=== PATIENT | female | born 1970 | race Caucasian/White ===

== ENCOUNTER 2018-04-05 11:00 | Emergency (ER) | payer SELFPAY ==
[~2018-04-05] VITALS: Ht 152.4 cm; Wt 6.0 kg
[2018-04-05 11:35] LABS: URINE BILIRUBIN - DIPSTICK NEGATIVE (NEGATIVE); URINE BLOOD DIPSTICK TRACE-LYSED (NEGATIVE); URINE COLOR YELLOW; URINE GLUCOSE - DIPSTICK NEGATIVE (NEGATIVE); URINE KETONE NEGATIVE (NEGATIVE); URINE LEUK ESTERASE NEGATIVE (NEGATIVE); URINE NITRITE - DIPSTICK NEGATIVE (Negative); URINE PH 5.5 (4.5-8.0); URINE PROTEIN - DIPSTICK NEGATIVE (NEG-TRACE); URINE SPECIFIC GRAVITY 1.025; URINE UROBILINOGEN - DIPSTICK 0.2 E.U./dL (0.2)
[2018-04-05 11:37] LABS: URINE CLARITY CLEAR
[2018-04-05 12:35] LABS: HEMATOCRIT 34.4 % (37.0-47.0); HEMOGLOBIN 10.7 g/dl (12.0-16.0); IMMATURE GRANULOCYTES 0.4 % (0.0-5.0); MEAN CELL VOLUME 92.5 fL CALC (80.0-100.0); MEAN CORPUSCULAR HGB 28.8 pG CALC (26.0-32.0); MEAN CORPUSCULAR HGB CONC 31.1 g/L CALC (32.0-36.0); NEUT# 7.31 thou/uL (2.00-7.15); RED BLOOD COUNT 3.72 mill/uL (4.20-5.60); RED CELL DISTRI WIDTH 15.7 % (11.5-15.5)
[2018-04-05] MEDS ORDERED: TORADOL PO (13:08)
[2018-04-05] MEDS ORDERED: ONDANSETRON4 MG PO (13:08)
[2018-04-05 13:16] VITALS: BP 163/91
== END 2018-04-05 13:23 | disposition home or self-care (01) | DRG 392 ==
LOC: ED 11:00
PROVIDERS: Emergency Medicine
DX: R10.30 Lower abdominal pain, unspecified (principal); R11.0 Nausea

== ENCOUNTER 2019-06-21 | Emergency (ER) | payer SELFPAY ==
[~2019-06-21] MED LIST: ONDANSETRON4 MG PO; TORADOL PO
[2019-06-21 16:44] LABS: IMMATURE GRANULOCYTES 0.1 % (0.0-5.0); MEAN CELL VOLUME 94.3 fL CALC (80.0-100.0); MEAN CORPUSCULAR HGB 30.2 pG CALC (26.0-32.0); NEUT# 3.13 thou/uL (2.00-7.15); RED BLOOD COUNT 4.37 mill/uL (4.20-5.60); RED CELL DISTRI WIDTH 15.7 % (11.5-15.5)
[2019-06-21 16:45] LABS: URINE BILIRUBIN - DIPSTICK NEGATIVE (NEGATIVE); URINE BLOOD DIPSTICK NEGATIVE (NEGATIVE); URINE COLOR YELLOW; URINE GLUCOSE - DIPSTICK NEGATIVE (NEGATIVE); URINE KETONE NEGATIVE (NEGATIVE); URINE LEUK ESTERASE NEGATIVE (NEGATIVE); URINE NITRITE - DIPSTICK NEGATIVE (Negative); URINE PROTEIN - DIPSTICK NEGATIVE (NEG-TRACE); URINE SPECIFIC GRAVITY <=1.005; URINE UROBILINOGEN - DIPSTICK 0.2 E.U./dL (0.2)
[2019-06-21 17:00] LABS: HEMATOCRIT 41.2 % (37.0-47.0); HEMOGLOBIN 13.2 g/dl (12.0-16.0)
[2019-06-21 17:10] LABS: ALBUMIN 5.1 g/dL (3.2-5.0); ALKALINE PHOSPHATASE 95 u/l (38-126); AMYLASE 82 u/l (30-110); BILIRUBIN, TOTAL 0.9 mg/dL (0.0-1.4); BUN 9 mg/dL (7-17); BUN/CREATININE RATIO 24 (12-20 (CALC)); CARBON DIOXIDE 21 mmol/l (22-30); CHLORIDE 106 mmol/l (95-108); CREATININE 0.4 mg/dL (0.5-1.0); GFR > 60 ML/MIN (>=60 (CALC)); GFR FOR AFR.AMER. > 60 ML/MIN (>=60 (CALC)); LIPASE 60 u/l (23-300); SGOT/AST 36 u/l (14-36); SODIUM 138 mmol/l (137-146); TOTAL PROTEIN 9.2 g/dL (6.3-8.2)
[2019-06-21 17:13] LABS: ANION GAP 17 (6-22 (CALC)); POTASSIUM 5.5 mmol/l (3.5-5.1)
== END 2019-06-21 19:09 | disposition home or self-care (01) | DRG 195 ==
DX: R09.1 Pleurisy (principal); B34.9 Viral infection, unspecified

== ENCOUNTER 2020-03-07 13:50 | Emergency (ER) | payer SELFPAY ==
[~2020-03-07] VITALS: Ht 152.4 cm; Wt 63.0 kg
[2020-03-07 14:38] LABS: GFR > 60 ML/MIN (>=60 (CALC)); GFR FOR AFR.AMER. > 60 ML/MIN (>=60 (CALC))
[2020-03-07 14:41] LABS: HEMATOCRIT 38.6 % (37.0-47.0); HEMOGLOBIN 12.4 g/dl (12.0-16.0); IMMATURE GRANULOCYTES 0.3 % (0.0-5.0); MEAN CELL VOLUME 95.1 fL CALC (80.0-100.0); MEAN CORPUSCULAR HGB 30.5 pG CALC (26.0-32.0); MEAN CORPUSCULAR HGB CONC 32.1 g/dL CAL (32.0-36.0); NEUT# 9.48 thou/uL (2.00-7.15); RED BLOOD COUNT 4.06 mill/uL (4.20-5.60); RED CELL DISTRI WIDTH 14.1 % (11.5-15.5)
[2020-03-07 14:48] LABS: ALBUMIN 4.7 g/dL (3.2-5.0); ALKALINE PHOSPHATASE 91 u/l (38-126); BUN 11 mg/dL (7-17); BUN/CREATININE RATIO 25 (12-20 (CALC)); CHLORIDE 105 mmol/l (95-108); CREATININE 0.5 mg/dL (0.5-1.0); GFR > 60 ML/MIN (>=60 (CALC)); GFR FOR AFR.AMER. > 60 ML/MIN (>=60 (CALC)); SGOT/AST 25 u/l (14-36); SODIUM 138 mmol/l (137-146)
[2020-03-07 15:15] VITALS: BP 153/82
[2020-03-07 15:17] LABS: ANION GAP 11 (6-22 (CALC)); BILIRUBIN, TOTAL 0.5 mg/dL (0.0-1.4); CARBON DIOXIDE 26 mmol/l (22-30); POTASSIUM 4.2 mmol/l (3.5-5.1)
[2020-03-07 15:22] LABS: INTERNATIONAL NORMALIZED RATIO 0.9 RATIO (0.7-1.3); PROTHROMBIN TIME 9.4 SECONDS (9.0-12.5)
== END 2020-03-07 15:37 | disposition short-term general hospital (02) | DRG 62 ==
LOC: ED 13:50
PROVIDERS: Family Medicine
DX: I63.9 Cerebral infarction, unspecified (principal); G81.94 Hemiplegia, unspecified affecting left nondominant side; H53.8 Other visual disturbances; R29.702 NIHSS score 2; I10 Essential (primary) hypertension; F17.210 Nicotine dependence, cigarettes, uncomplicated
CPT/HCPCS: J2997; Q9967

== ENCOUNTER 2020-03-19 13:28 | Observation (INO) | payer SELFPAY ==
[~2020-03-19] VITALS: Ht 152.4 cm; Wt 64.0 kg
--- NOTE | 2020-03-19 13:49 | NUR ---
PT AMBLATORY TO ROOM FOR EXAM
--- NOTE | 2020-03-19 14:15 | NUR ---
PT CONCERNED SHE STILL HAS RESIDUAL DEFICITS FROM [facility] 03/07/20. WOULD LIKE F/U. CONTINUES WITH INTERMITTENT NUMBNESS TO LUE X 3DAYS. DENIES HEADACHE OR BLURRY VISION.
[2020-03-19 14:49] LABS: HEMATOCRIT 36.5 % (37.0-47.0); HEMOGLOBIN 11.6 g/dl (12.0-16.0); IMMATURE GRANULOCYTES 0.3 % (0.0-5.0); MEAN CELL VOLUME 97.9 fL CALC (80.0-100.0); MEAN CORPUSCULAR HGB 31.1 pG CALC (26.0-32.0); MEAN CORPUSCULAR HGB CONC 31.8 g/dL CAL (32.0-36.0); NEUT# 3.88 thou/uL (2.00-7.15); RED BLOOD COUNT 3.73 mill/uL (4.20-5.60); RED CELL DISTRI WIDTH 13.7 % (11.5-15.5)
[2020-03-19] MEDS ORDERED: ASPIRIN81 MG PO (14:57)
[2020-03-19] MEDS ORDERED: ATORVASTATIN CA40 MG PO (14:57)
[2020-03-19 15:18] LABS: ALBUMIN 4.4 g/dL (3.2-5.0); ALKALINE PHOSPHATASE 60 u/l (38-126); ANION GAP 8 (6-22 (CALC)); BILIRUBIN, TOTAL 0.6 mg/dL (0.0-1.4); BUN 11 mg/dL (7-17); BUN/CREATININE RATIO 20 (12-20 (CALC)); CARBON DIOXIDE 27 mmol/l (22-30); CHLORIDE 108 mmol/l (95-108); CREATININE 0.5 mg/dL (0.5-1.0); GFR > 60 ML/MIN (>=60 (CALC)); GFR FOR AFR.AMER. > 60 ML/MIN (>=60 (CALC)); POTASSIUM 4.2 mmol/l (3.5-5.1); SGOT/AST 26 u/l (14-36); SODIUM 139 mmol/l (137-146); TOTAL PROTEIN 7.5 g/dL (6.3-8.2)
--- NOTE | 2020-03-19 15:48 | NUR ---
ATIVAN 1MG IVP FOR C/O ANXIETY WHILE ATTEMPTING MRI BRAIN.
--- NOTE | 2020-03-19 17:00 | NUR ---
RETURNED FROM RADIOLOGY VIA WHEELCHAIR. AMBULATED TO BATHROOM WITH STEADY GAIT.
--- NOTE | 2020-03-19 18:08 | NUR ---
MD AT BEDSIDE TO DISCUSS RESULTS AND POC.
--- NOTE | 2020-03-19 18:58 | NUR ---
REPORT GIVEN TO NEL PHILLIPS.
--- NOTE | 2020-03-19 20:00 | NUR ---
AWAITING TRAPORT TO FLOOR. VSS.
--- NOTE | 2020-03-19 21:00 | NUR ---
RESTING QUIETLY. NO CHANGE NOTED.
--- NOTE | 2020-03-19 21:25 | NUR ---
Admission Note Report Given to: VANDA Transported by: X Wheelchair Stretcher Transported with: X Nurse Transporter X Patent IV O2 X Diesel Instructor Location: ICU X [facility]
--- NOTE | 2020-03-19 21:25 | NUR ---
PT RECEIVED FROM ED TO ROOM 261. ARRIVES VIA STRETCHER ACCOMPANIED BY ... RN. PT AMBULATORY TO BED. GAIT STEADY AND BALANCED. PT DENIES PAIN AT THIS TIME. ORIENTED TO UNIT, ROOM, CALL GOLD, LIGHTS, TV. ICE CHIPS PROVIDED. PT TO BE NPO AT MIDNIGHT, PT VERBALIZES UNDERSTANDING AND AGREEMENT. CALL GOLD WITHIN REACH. AGREES TO CALL PRN.
[2020-03-19 21:40] VITALS: BP 137/71
--- NOTE | 2020-03-19 21:45 | NUR ---
ASSESSMENT AND VITALS COMPLETED AT THIS TIME. RESPIRATIONS ARE EVEN AND UNLABORED PRESENTLY ON ROOM AIR. HEART RHYTHM IS NORMAL WITH TELE IN PLACE. BOWEL SOUNDS ARE ACTIVE IN ALL QUADRANTS, LAST REPORTED BM 03/19/2020. RADIAL AND PEDAL PULSES ARE STRONG WITH NORMAL CAPILLARY REFILL. #20G IN RAC SLAINE LOCKED; SITE APPEARS HEALTHY AND PATENT. Q4 NEURO CHECKS ASSESSED. PT DENIES OF ANY PAIN OR DISCOMFORTS AT THIS TIME. ALL SAFETY PRECAUTIONS ARE IN PLACE WITH CALL LIGHT IN REACH. WILL CONTINUE TO MONITOR.
--- NOTE | 2020-03-20 00:04 | NUR ---
PT LAYING IN BED WITH EYES CLOSED, APPEARS TO BE SLEEPING, APPEARS COMFORTABLE AND IN NO DISTRESS. RESPIRATIONS REGULAR AND UNLABORED. ITEMS REMAIN WITHIN REACH, CALL GOLD REMAINS WITHIN REACH. BED REMAINS LOCKED AND IN LOW POSITION WITH BEDRAILS UP X2. WILL CONTINUE TO MONITOR.
[2020-03-20 04:06] VITALS: BP 97/56
[2020-03-20 04:33] LABS: HEMATOCRIT 36.1 % (37.0-47.0); HEMOGLOBIN 11.3 g/dl (12.0-16.0); MEAN CELL VOLUME 98.4 fL CALC (80.0-100.0); MEAN CORPUSCULAR HGB 30.8 pG CALC (26.0-32.0); MEAN CORPUSCULAR HGB CONC 31.3 g/dL CAL (32.0-36.0); RED BLOOD COUNT 3.67 mill/uL (4.20-5.60); RED CELL DISTRI WIDTH 13.7 % (11.5-15.5)
[2020-03-20 04:56] LABS: ANION GAP 10 (6-22 (CALC)); BUN 14 mg/dL (7-17); BUN/CREATININE RATIO 26 (12-20 (CALC)); CALCULATED LDLCHOLESTEROL 82 mg/dL (62-129 (CALC)); CARBON DIOXIDE 25 mmol/l (22-30); CHLORIDE 109 mmol/l (95-108); CHOLESTEROL HDL RATIO 4.1 (<4.4 (CALC)); CREATININE 0.5 mg/dL (0.5-1.0); GFR > 60 ML/MIN (>=60 (CALC)); GFR FOR AFR.AMER. > 60 ML/MIN (>=60 (CALC)); HDL CHOLESTEROL 39 mg/dL (>=40); MAGNESIUM 2.5 mg/dL (1.6-2.3); POTASSIUM 4.5 mmol/l (3.5-5.1); SODIUM 139 mmol/l (137-146); TOTAL CHOLESTEROL 160 mg/dl (0-199); TOTAL TRIGLYCERIDES 192 mg/dl (30-149); VLDL CHOLESTROL 38 mg/dl (1-41 (CALC))
--- NOTE | 2020-03-20 07:03 | NUR ---
REPORT RECEIVED FROM ALAN DC. PT RESTING IN BED, NO S/S OF DISTRESS AT THIS TIME. SAFETY PRECAUTIONS IN PLACE. WILL CONTINUE TO MONITOR.
[2020-03-20 07:24] VITALS: BP 114/51
--- NOTE | 2020-03-20 07:24 | NUR ---
PT RESTING IN BED, ALERT AND ORIENTED. RESPIRATIONS ARE EVEN AND UNLABORED ON RA, LUNGS SOUND CLEAR. PEDAL PULSES ARE WEAK. PT DENIES ANY PAIN OR DISCOMFORT AT THIS TIME. SAFETY PRECAUTIONS IN PLACE. WILL CONTINUE TO MONITOR.
--- NOTE | 2020-03-20 07:44 | NUR ---
PT note Patient is screened for rehab intervention. No speech needs are identfied but the patient would benefit from PT and OT referrals if medical agrees
[2020-03-20] MEDS ORDERED: PLAVIX75 MG PO (10:46)
--- NOTE | 2020-03-20 12:49 | NUR ---
PT RESTING IN BED, NO S/S OF DISTRESS AT THIS TIME. SAFETY PRECAUTIONS IN PLACE. WILL CONTINUE TO MONITOR.
--- NOTE | 2020-03-20 14:38 | NUR ---
pt provided with discharge packet, iv removed catheter intact.
--- NOTE | 2020-03-20 14:42 | NUR ---
Discharge instructions given. Patient verbalizes understanding of same. Discharged in stable condition via Ambulatory to Home with staff. All belongings sent with pt.
== END 2020-03-20 14:41 | disposition home or self-care (01) | DRG 81 ==
LOC: ED 13:28 → ED-I 14:33 → ED 14:33 → ED-I 18:05 → ED 18:19 → MS2 18:20
PROVIDERS: Family Medicine; Nurse Practitioner; ADMIT Internal Medicine; ATTEND Internal Medicine
DX: G93.5 Compression of brain (principal); I10 Essential (primary) hypertension; E78.5 Hyperlipidemia, unspecified; F17.200 Nicotine dependence, unspecified, uncomplicated; Z86.73 Personal history of transient ischemic attack (TIA), and cerebral infarction without residual deficits; Z20.828 Contact with and (suspected) exposure to other viral communicable diseases
CPT/HCPCS: G0378; J2060

== ENCOUNTER 2020-03-26 20:58 | Emergency (ER) | payer SELFPAY ==
[~2020-03-26] VITALS: Ht 152.4 cm; Wt 62.2 kg
[~2020-03-26 20:58] MED LIST changes: +ASPIRIN81 MG PO; +ATORVASTATIN CA40 MG PO; +PLAVIX75 MG PO
[2020-03-26 22:08] LABS: HEMATOCRIT 36.9 % (37.0-47.0); HEMOGLOBIN 11.9 g/dl (12.0-16.0); IMMATURE GRANULOCYTES 0.1 % (0.0-5.0); MEAN CELL VOLUME 96.3 fL CALC (80.0-100.0); MEAN CORPUSCULAR HGB 31.1 pG CALC (26.0-32.0); MEAN CORPUSCULAR HGB CONC 32.2 g/dL CAL (32.0-36.0); NEUT# 3.09 thou/uL (2.00-7.15); RED BLOOD COUNT 3.83 mill/uL (4.20-5.60); RED CELL DISTRI WIDTH 13.8 % (11.5-15.5)
[2020-03-26 22:35] LABS: ALBUMIN 4.9 g/dL (3.2-5.0); ALKALINE PHOSPHATASE 86 u/l (38-126); ANION GAP 15 (6-22 (CALC)); BILIRUBIN, TOTAL 0.5 mg/dL (0.0-1.4); BUN 13 mg/dL (7-17); BUN/CREATININE RATIO 29 (12-20 (CALC)); CARBON DIOXIDE 25 mmol/l (22-30); CHLORIDE 104 mmol/l (95-108); CREATININE 0.5 mg/dL (0.5-1.0); GFR > 60 ML/MIN (>=60 (CALC)); GFR FOR AFR.AMER. > 60 ML/MIN (>=60 (CALC)); POTASSIUM 4.6 mmol/l (3.5-5.1); SGOT/AST 35 u/l (14-36); SODIUM 140 mmol/l (137-146)
[2020-03-26 22:47] LABS: MYOGLOBIN 17 ng/mL (0 - 62)
[2020-03-27 00:24] VITALS: BP 127/62
== END 2020-03-27 00:54 | disposition home or self-care (01) | DRG 313 ==
LOC: ED 20:58
PROVIDERS: Emergency Medicine
DX: R07.89 Other chest pain (principal); G93.5 Compression of brain; I69.998 Other sequelae following unspecified cerebrovascular disease; R20.0 Anesthesia of skin

== ENCOUNTER 2020-05-26 16:12 | Emergency (ER) | payer SELFPAY ==
[~2020-05-26] VITALS: Ht 152.4 cm; Wt 70.0 kg
[2020-05-26 17:48] LABS: URINE BILIRUBIN - DIPSTICK NEGATIVE (NEGATIVE); URINE BLOOD DIPSTICK NEGATIVE (NEGATIVE); URINE COLOR YELLOW; URINE GLUCOSE - DIPSTICK NEGATIVE (NEGATIVE); URINE KETONE NEGATIVE (NEGATIVE); URINE LEUK ESTERASE NEGATIVE (NEGATIVE); URINE NITRITE - DIPSTICK NEGATIVE (Negative); URINE PROTEIN - DIPSTICK NEGATIVE (NEG-TRACE); URINE UROBILINOGEN - DIPSTICK 0.2 E.U./dL (0.2)
[2020-05-26 17:48] LABS: HEMATOCRIT 35.8 % (37.0-47.0); HEMOGLOBIN 11.5 g/dl (12.0-16.0); IMMATURE GRANULOCYTES 0.3 % (0.0-5.0); MEAN CELL VOLUME 97.5 fL CALC (80.0-100.0); MEAN CORPUSCULAR HGB 31.3 pG CALC (26.0-32.0); MEAN CORPUSCULAR HGB CONC 32.1 g/dL CAL (32.0-36.0); RED BLOOD COUNT 3.67 mill/uL (4.20-5.60); RED CELL DISTRI WIDTH 13.3 % (11.5-15.5)
[2020-05-26 18:09] LABS: ALBUMIN 4.7 g/dL (3.2-5.0); ALKALINE PHOSPHATASE 80 u/l (38-126); ANION GAP 13 (6-22 (CALC)); BILIRUBIN, TOTAL 0.4 mg/dL (0.0-1.4); BUN 11 mg/dL (7-17); BUN/CREATININE RATIO 23 (12-20 (CALC)); CARBON DIOXIDE 27 mmol/l (22-30); CHLORIDE 105 mmol/l (95-108); CREATININE 0.5 mg/dL (0.5-1.0); GFR > 60 ML/MIN (>=60 (CALC)); GFR FOR AFR.AMER. > 60 ML/MIN (>=60 (CALC)); POTASSIUM 4.2 mmol/l (3.5-5.1); SGOT/AST 30 u/l (14-36); SODIUM 140 mmol/l (137-146); TOTAL PROTEIN 8.2 g/dL (6.3-8.2)
[2020-05-26 18:21] LABS: MYOGLOBIN 19 ng/mL (0 - 62)
[2020-05-26 19:14] VITALS: BP 136/82
== END 2020-05-26 20:18 | disposition left against medical advice (07) | DRG 313 ==
LOC: ED 16:12
PROVIDERS: Emergency Medicine
DX: R07.9 Chest pain, unspecified (principal); M79.602 Pain in left arm; Z91.19 Patient's noncompliance with other medical treatment and regimen; Z86.73 Personal history of transient ischemic attack (TIA), and cerebral infarction without residual deficits
CPT/HCPCS: Q9967